=== PATIENT | female | born 1960 | race Two or more races ===

== ENCOUNTER → 2018-06-29 | Outpatient (REF) | payer MEDICARE ==
[2018-06-29 16:28] LABS: ALKALINE PHOSPHATASE 101 U/L (45-117); ALT/SGPT 69 U/L (12-78); ANION GAP 8 MEQ/L (8-16); AST/SGOT 46 U/L (7-37); BILIRUBIN,TOTAL 0.5 MG/DL (0.2-1.0); BLOOD UREA NITROGEN 14 MG/DL (7-18); CALCIUM LEVEL 9.2 MG/DL (8.5-10.1); CARBON DIOXIDE LEVEL 27 MEQ/L (21-32); CHLORIDE LEVEL 103 MEQ/L (98-107); CREATININE FOR GFR 0.88 MG/DL (0.55-1.30); GLOMERULAR FILTRATION RATE > 60.0 (>51); GLUCOSE, FASTING 163 MG/DL (70-100); POTASSIUM SERUM 4.9 MEQ/L (3.5-5.1); SODIUM LEVEL 138 MEQ/L (136-145)
[2018-06-29 16:29] LABS: ALBUMIN/GLOBULIN RATIO 0.98 (1.00-1.93); CHOLESTEROL LEVEL 232 MG/DL (<200); CHOLESTEROL RISK RATIO 4.734 (<5); HDL CHOLESTEROL 49 MG/DL (>40); LDL CHOLESTEROL 142 MG/DL (<100); NON-HDL-C 183 MG/DL; TOTAL PROTEIN 8.1 GM/DL (6.4-8.2); TRIGLYCERIDES LEVEL 207 MG/DL (<150)
[2018-06-29 16:47] LABS: ESTIMATED AVERAGE GLUCOSE 157 MG/DL (60-110); HEMOGLOBIN A1c 7.1 %
[2018-06-30 10:27] LABS: HEPATITIS B SURFACE ANTIBODY NEGATIVE (POSITIVE); HEPATITIS B SURFACE ANTIGEN NEGATIVE (NEGATIVE)
[2018-06-30 10:55] LABS: HEPATITIS C VIRUS ABY INDEX < 0.0 INDEX (<0.8)
[2018-07-03 00:08] LABS: % CD8 Pos Lymph 46.9 % (12.0-35.5); %CD4 Pos Lymphs 28.1 % (30.8-58.5); ABS Eosinophils 0.1 x10E3/uL (0.0-0.4); ABS Lymphs 2.5 x10E3/uL (0.7-3.1); ABS Monocytes 0.3 x10E3/uL (0.1-0.9); ABS Neutophils 4.6 x10E3/uL (1.4-7.0); Abs CD4 Helper 703 /uL (359-1519); Abs CD8 Suppres 1173 /uL (109-897); Eosinophils 2 % (Not Estab.); HCT 42.7 % (34.0-46.6); HEPATITIS A IgG TOTAL Positive (Negative); HEPATITIS B CORE ANTIBODY IGG Negative (Negative); HGB 14.3 g/dL (11.1-15.9); HIV-1 RNA PCR QUANT 2 LC550285 100 copies/mL (.); Immature Grans 0 % (Not Estab.); Lymphocytes 33 % (Not Estab.); MCH 30.8 pg (26.6-33.0); MCHC 33.5 g/dL (31.5-35.7); MCV 92 fL (79-97); Monocytes 4 % (Not Estab.); Neutrophils 60 % (Not Estab.); Platelets 208 x10E3/uL (150-379); QuantiFERON-TB Gold Plus Negative (Negative); RBC 4.65 x10E6/uL (3.77-5.28); RDW 14.5 % (12.3-15.4); WBC 7.6 x10E3/uL (3.4-10.8)
== END ==
LOC: M SFHCPLAZ 12:06
DX: B20 Human immunodeficiency virus [HIV] disease (principal); E11.9 Type 2 diabetes mellitus without complications; I10 Essential (primary) hypertension; F32.9 Major depressive disorder, single episode, unspecified; K21.9 Gastro-esophageal reflux disease without esophagitis; J45.20 Mild intermittent asthma, uncomplicated; R07.89 Other chest pain
CPT/HCPCS: 80053